=== PATIENT | female | born 1950 | race African-American/Black ===

== ENCOUNTER 2020-03-21 19:11 | Inpatient (IN) | payer MEDICARE, BC ==
[~2020-03-21] VITALS: Ht 160 cm; Wt 134.7 kg
[2020-03-21 20:30] VITALS: BP 160/55
[2020-03-21 20:30] LABS: BASOPHILS 0.3 % (0-2); EOSINOPHILS 3.4 % (0-7); HEMATOCRIT 25.6 % (36.0-48.0); HEMOGLOBIN 7.9 g/dL (12-16); IMMATURE GRANULOCYTES 0.4 % (0-5); LYMPHOCYTES 15.2 % (15-50); MCH 29.5 pg (26.0-34.0); MCHC 30.9 g/dL (31.0-37.0); MCV 95.5 fL (80.0-100.0); MEAN PLATELET VOLUME 10.9 fL (7.4-10.4); MONOCYTES 7.6 % (2-11); NEUTROPHILS 73.1 % (40-80); PLATELET COUNT 240 10x3/uL (130-400); RBC 2.68 10x6/uL (4.00-5.40); RDW 17.6 % (11.5-14.5); WBC 11.2 10x3/uL (4.8-10.8)
[2020-03-21 21:09] LABS: ANION GAP 12.7 mmol/L (8-16); CARBON DIOXIDE 24.3 mmol/L (21.0-32.0); CREATININE - SERUM 1.4 mg/dL (0.6-1.3)
[2020-03-21 21:14] LABS: BILIRUBIN - TOTAL 0.21 mg/dL (0.2-1.3); PROTEIN - SERUM 5.6 g/dL (6.4-8.2)
[2020-03-21 21:49] VITALS: BP 156/58
[2020-03-21 22:40] VITALS: BP 129/52; BMI 52.7
[2020-03-21 23:00] VITALS: BP 167/39
--- NOTE | 2020-03-21 23:03 | NUR ---
REC'D PT FROM ER, PT ASSISTED INTO CV ICU BED, PT AWAKE AND ALERT, TOTH STAT LOCKED IN PLACE DRAINING YELLOW URINE, TOTH WAS PLACED AT PREVIOUS HOSPITAL PRIOR TO TRANSFER TO [facility] IN [place], [facility]. NS AND PROTONIX DRIP INFUSING. MONITORS ON AND WORKING, VSS, CALL LIGHT WITHIN REACH, WILL CONTINUE TO OBSERVE. SEE FLOW SHEET FOR FURTHER DETAILS. DR ATKINSON AWARE OF CONSULT PER REPORT FROM ER STAFF.
[2020-03-22] VITALS (23 sets, daily range): BP systolic 124–178; BP diastolic 33–71; Ht 160 cm; Wt 134.7 kg
--- NOTE | 2020-03-22 01:00 | NUR ---
PT LYING IN BED RESTING, MONITORS ON AND WORKING, VSS, CALL LIGHT WITHIN REACH, WILL CONTINUE TO OBSERVE.
[2020-03-22 01:22] LABS: HEMATOCRIT 22.7 % (36.0-48.0)
[2020-03-22 01:30] LABS: APTT 26.4 SECONDS (22.8-39.4); INR 1.21 (0.85-1.17); PROTIME 15.2 SECONDS (11.6-15.0)
[2020-03-22 01:47] LABS: HEMOGLOBIN 7.1 g/dL (12-16)
--- NOTE | 2020-03-22 03:00 | NUR ---
PT LYING IN BED RESTING, MONITORS ON AND WORKING, VSS, CALL LIGHT WITHIN REACH, WILL CONTINUE TO OBSERVE.
[2020-03-22 05:30] LABS: BASOPHILS 0.4 % (0-2); EOSINOPHILS 6.2 % (0-7); HEMATOCRIT 21.9 % (36.0-48.0); IMMATURE GRANULOCYTES 0.4 % (0-5); LYMPHOCYTES 20.8 % (15-50); MCH 29.6 pg (26.0-34.0); MCHC 31.1 g/dL (31.0-37.0); MCV 95.2 fL (80.0-100.0); MEAN PLATELET VOLUME 10.4 fL (7.4-10.4); MONOCYTES 8.9 % (2-11); NEUTROPHILS 63.3 % (40-80); PLATELET COUNT 215 10x3/uL (130-400); RDW 18.1 % (11.5-14.5)
[2020-03-22 06:18] LABS: ALBUMIN 2.7 g/dL (3.4-5.0); ANION GAP 9.7 mmol/L (8-16); BILIRUBIN - TOTAL 0.13 mg/dL (0.2-1.3); CALCIUM 9.1 mg/dL (8.5-10.1); CARBON DIOXIDE 27.2 mmol/L (21.0-32.0); CREATININE - SERUM 1.4 mg/dL (0.6-1.3); MAGNESIUM - SERUM 2.2 mg/dL (1.8-2.4); POTASSIUM - SERUM 4.9 mmol/L (3.5-5.1); PROTEIN - SERUM 5.2 g/dL (6.4-8.2)
[2020-03-22 06:31] LABS: WBC 6.9 10x3/uL (4.8-10.8)
[2020-03-22 06:38] LABS: HEMOGLOBIN 6.8 g/dL (12-16)
--- NOTE | 2020-03-22 06:45 | NUR ---
PAGED DR ATKINSON CONCERNING PTS H&H, REC'D ORDERS FOR TWO UNITS OF PRBCS, ORDER IS IN AND BLOOD BANK IS AWARE. DISCUSSED WITH ONCOMING RN WHO WILL BE CARING FOR PT TODAY.
--- NOTE | 2020-03-22 09:43 | NUR ---
0700 BEDSIDE REPORT COMPLETE BLOOD CONSENT AND EGD CONSENTS SIGNED
--- NOTE | 2020-03-22 09:44 | NUR ---
0945 CALLED BLOOD BANK AND BLOOD NOT READY PT REMAINS NPO FOR EGD PER DR ATKINSON
--- NOTE | 2020-03-22 09:44 | NUR ---
0900 PREOP CALLED MEDS GIVEN CALLED BLOOD BANK AND BLOOD NOT READY
--- NOTE | 2020-03-22 09:53 | NUR ---
0950 EKG COMPLETE AND PLACED ON CHART
--- NOTE | 2020-03-22 11:02 | NUR ---
1040 STARTED FIRST UNIT PRBC TO LEFT HAND
[2020-03-22 11:27] LABS: HEMATOCRIT 23.3 % (36.0-48.0)
[2020-03-22 11:34] LABS: HEMOGLOBIN 7.1 g/dL (12-16)
--- NOTE | 2020-03-22 13:45 | NUR ---
1200 AUTOMATIC B/P CUFF HURTING PATIENTS ARM TO WHERE SHE PULLS IT OFF RECONCILED PAIN BY TAKING BP ALLYSON
--- NOTE | 2020-03-22 13:46 | NUR ---
1315 STARTED 2ND UNIT PRBC
[2020-03-22 13:47] LABS: % SATURATION 16 % (15-55); IRON 54 ug/dl (35-150); TOTAL IRON BIND CAPACITY 323 ug/dl (260-445); UNSAT IRON BIND CAPACITY 269 ug/dl (150-375)
--- NOTE | 2020-03-22 13:47 | NUR ---
0341 COMPLETE CHG BATH COMPLETE
[2020-03-22 14:07] LABS: THYROID STIMULATING HORMONE 0.74 uIU/mL (0.36-3.74)
--- NOTE | 2020-03-22 15:34 | NUR ---
[address] DECKER OF CONSULT REQUESTED BY DR VANEGAS REGARDING POSSIBLE RENAL MASS
--- NOTE | 2020-03-22 15:35 | NUR ---
1513 2ND UNIT PRBC COMPLETE TOLERATED INFUSIONS WELL NO SUSPECTION OF ADVERSE REACTION CONTINUING BP WITH MANUAL CUFF
[2020-03-22 18:34] LABS: HEMATOCRIT 28.3 % (36.0-48.0); HEMOGLOBIN 8.8 g/dL (12-16)
--- NOTE | 2020-03-22 19:00 | NUR ---
SHIFT ASSESSMENT COMPLETED, PT CARE ASSUMED, MONITORS ON AND WORKING, VSS, CALL LIGHT WITHIN REACH, SEE FLOW SHEET FOR FURTHER DETAILS. WILL CONTINUE TO OBSERVE.
--- NOTE | 2020-03-22 21:00 | NUR ---
PT TURNED AND REPOSITIONED FOR COMFORT, PT AWAKE AND ALERT NO SIGNS/SYMPTOMS OF PAIN OR DISCOMFORT. PT ON CELL PHONE WITH SON AT THIS TIME.
--- NOTE | 2020-03-22 23:00 | NUR ---
PT LYING IN BED RESTING, MONITORS ON AND WORKING, VSS. CALL LIGHT WITHIN REACH, SEE FLOW SHEET FOR FURTHER DETAILS. WILL CONTINUE TO OBSERVE.
[2020-03-23] VITALS (13 sets, daily range): BP systolic 134–178; BP diastolic 32–65
--- NOTE | 2020-03-23 01:00 | NUR ---
PT RESTING IN BED. MONITORS ON AND WORKING, VSS. CALL LIGHT WITHIN REACH, WILL CONTINUE TO OBSERVE.
--- NOTE | 2020-03-23 03:00 | NUR ---
TRANSFUSING PRBCS PER MD, NO CHANGES AT THIS TIME. CALL LIGHT WITHIN REACH, SEE FLOW SHEET FOR FURTHER DETAILS. WILL CONTINUE TO OBSERVE.
--- NOTE | 2020-03-23 05:00 | NUR ---
PT LYING IN BED RESTING, MONITORS ON AND WORKING, VSS, CALL LIGHT WITHIN REACH, SECOND UNIT OF PRBCS TRANSFUSING. WILL CONTINUE TO OBSERVE.
[2020-03-23 06:26] LABS: BASOPHILS 0.3 % (0-2); EOSINOPHILS 12.1 % (0-7); HEMATOCRIT 30.4 % (36.0-48.0); HEMOGLOBIN 9.3 g/dL (12-16); IMMATURE GRANULOCYTES 0.3 % (0-5); LYMPHOCYTES 17.2 % (15-50); MCH 27.8 pg (26.0-34.0); MCHC 30.6 g/dL (31.0-37.0); MEAN PLATELET VOLUME 10.7 fL (7.4-10.4); MONOCYTES 7.6 % (2-11); NEUTROPHILS 62.5 % (40-80); PLATELET COUNT 198 10x3/uL (130-400); RDW 19.1 % (11.5-14.5); WBC 7.3 10x3/uL (4.8-10.8)
[2020-03-23 06:32] LABS: ALBUMIN 2.8 g/dL (3.4-5.0); BILIRUBIN - TOTAL 0.25 mg/dL (0.2-1.3); CALCIUM 8.1 mg/dL (8.5-10.1); CARBON DIOXIDE 27.3 mmol/L (21.0-32.0); MAGNESIUM - SERUM 2.1 mg/dL (1.8-2.4); POTASSIUM - SERUM 4.3 mmol/L (3.5-5.1); PROTEIN - SERUM 5.4 g/dL (6.4-8.2)
[2020-03-23 07:04] LABS: RBC 3.34 10x6/uL (4.00-5.40)
--- NOTE | 2020-03-23 12:24 | NUR ---
Nutrition Follow-up: S/p EGD showing Eckert's esophagus (biopsied) and moderate sized sliding hiatal hernia. Diet: Clear Liquid Wt: 297# (03/22) Labs noted: Glu 219, Ca 8.1, Alb 2.8 Meds noted: Protonix, Humalog, NS @ 100, electrolyte protocol -Rec ADAT as medically feasible. If unable to advance past clears within 24-48 hrs, rec consider nutrition support; RD available to assist as needed. -Monitor wt. -RD following.
[2020-03-23 13:28] LABS: HEMATOCRIT 33.5 % (36.0-48.0); HEMOGLOBIN 10.7 g/dL (12-16)
--- NOTE | 2020-03-23 19:00 | NUR ---
SHIFT ASSESSMENT COMPLETED. PT CARE ASSUMED, MONITORS ON AND WORKING, VSS, PT AWAKE AND ALERT, NO SIGNS/SYMPTOMS OF PAIN OR DISCOMFORT, SEE FLOW SHEET FOR FURTHER DETAILS. WILL CONTINUE TO OBSERVE/
--- NOTE | 2020-03-23 21:00 | NUR ---
PT UP TO CHAIR AT BEDSIDE, PT TOLERATED WELL. MONITORS ON AND WORKING, H&H REMAINS STABLE, PT DENIES ANY COMPLAINT OF PAIN OR DISCOMFORT AT THIS TIME CALL LIGHT WITHIN REACH, WILL CONTINUE TO OBSERVE.
--- NOTE | 2020-03-23 23:00 | NUR ---
PT ASSISTED BACK INTO BED, LINEN CHANGE DONE AT THIS TIME. MONITORS ON AND WORKING, VSS CALL LIGHT WITHIN REACH, WILL CONTINUE TO OBSERVE.
[2020-03-24] VITALS (14 sets, daily range): BP systolic 121–193; BP diastolic 45–77
[2020-03-24 00:09] LABS: HEMOGLOBIN 10.9 g/dL (12-16)
--- NOTE | 2020-03-24 01:00 | NUR ---
PT RESTING QUITELY IN BED, CALL LIGHT WITHIN REACH, WILL CONTINUE TO OBSERVE.
--- NOTE | 2020-03-24 03:00 | NUR ---
PT LYING IN BED RESTING, MONITORS ON AND WORKING, FRESH ICE WATER ON BEDSIDE TABLE, CALL LIGHT WITHIN REACH, WILL CONTINUE TO OBSERVE.
--- NOTE | 2020-03-24 05:00 | NUR ---
NO CHANGES, CALL LIGHT WITHIN REACH, WILL CONTINUE TO OBSERVE.
[2020-03-24 06:36] LABS: BASOPHILS 0.2 % (0-2); EOSINOPHILS 7.2 % (0-7); HEMATOCRIT 34.6 % (36.0-48.0); IMMATURE GRANULOCYTES 0.2 % (0-5); LYMPHOCYTES 10.8 % (15-50); MCH 28.7 pg (26.0-34.0); MCHC 31.8 g/dL (31.0-37.0); MCV 90.3 fL (80.0-100.0); MEAN PLATELET VOLUME 10.4 fL (7.4-10.4); MONOCYTES 5.8 % (2-11); NEUTROPHILS 75.8 % (40-80); PLATELET COUNT 204 10x3/uL (130-400); RBC 3.83 10x6/uL (4.00-5.40); RDW 17.9 % (11.5-14.5)
[2020-03-24 06:37] LABS: WBC 9.8 10x3/uL (4.8-10.8)
[2020-03-24 06:51] LABS: ANION GAP 10.9 mmol/L (8-16); BILIRUBIN - TOTAL 0.4 mg/dL (0.2-1.3); CALCIUM 8.3 mg/dL (8.5-10.1); CARBON DIOXIDE 23.9 mmol/L (21.0-32.0); CREATININE - SERUM 0.9 mg/dL (0.6-1.3); PHOSPHOROUS 2.1 mg/dL (2.5-4.9); POTASSIUM - SERUM 3.8 mmol/L (3.5-5.1); PROTEIN - SERUM 5.7 g/dL (6.4-8.2)
--- NOTE | 2020-03-24 08:34 | NUR ---
0700 PT RECIEVED ALERT AN DORIENTED VSS DENIES PAIN AND ALL NEEDS SEE SHIFT ASSESSMENT FOR DETAILS 0830 ASSISTED UP TO CHAIR FOR BREAKFAST, ATE 75%
--- NOTE | 2020-03-24 09:29 | NUR ---
PAGED AND SPOKE WITH DR CHOPRA ABOUT CONTINUED HYPERTENSION AND THAT PT STATES SHE TAKES NO BLOOD PRESSURE MEDICATION AT HOME, [facility] ORDER RECIEVED. AFTER GIVING NORVASC PT STATES SHE TAKES TOPROL AND THAT SHE HAS A LIST OF MEDICATIONS IN HER BAG, WILL ENTER INTO MED REC AT THIS TIME
[2020-03-24] MEDS ORDERED: HUMALOG MIX 75/10 ML SQ (09:32)
[2020-03-24] MEDS ORDERED: K-TAB10 MEQ PO (09:33)
[2020-03-24] MEDS ORDERED: GEMFIBROZIL600 MG PO (09:33)
[2020-03-24] MEDS ORDERED: BAYER CHEWABLE81 MG PO (09:34)
[2020-03-24] MEDS ORDERED: GLUCOPHAGE500 MG PO (09:34)
[2020-03-24] MEDS ORDERED: TOPROL XL50 MG PO (09:34)
[2020-03-24] MEDS ORDERED: LASIX40 MG PO (09:35)
[2020-03-24] MEDS ORDERED: ISOSORBIDE MONO30 M1 PO (09:35)
[2020-03-24] MEDS ORDERED: OMEPRAZOLE20 M1 PO (09:36)
[2020-03-24] MEDS ORDERED: ZOCOR40 MG PO (09:36)
[2020-03-24] MEDS ORDERED: NEURONTIN600 MG PO (09:37)
[2020-03-24] MEDS ORDERED: TRAZODONE HCL150 MG PO (09:37)
[2020-03-24] MEDS ORDERED: VOLTAREN75 MG PO (09:38)
--- NOTE | 2020-03-24 12:13 | NUR ---
SPOKE WITH DR CHOPRA ABOUT CONTINUED HTN, ORDERS FOR HYDRALAZINE RECIEVED
--- NOTE | 2020-03-24 13:36 | NUR ---
REPORT GIVEN TO PATRICIA ORELLANA
--- NOTE | 2020-03-24 14:07 | NUR ---
REPORTS HEADACHE 06/25. TYLENOL GIVEN PER ORDERS. PT STATES THAT SHE IS SENSITIVE TO LIGHTS. REQUEST TO KEEP CURTAIN AND DOOR CLOSED MUCH POSSIBLE TO REDUCE LIGHT IN HER ROOM.
--- NOTE | 2020-03-24 18:43 | NUR ---
TRANSFERRED TO ROOM 2218 VIA WHEELCHAIR. PERSONAL BELONGINGS SENT WITH PT INCLUDING SHOES, PHONE, BRIDGE CLUB MANAGER, GLASSES, GREEN SUITCASE, WALKER WITH BLACK POUCH. RECEIVING NURSE NOTIFIED OF PT ARRIVAL. CHART HANDED TO MARIANN ORELLANA.
--- NOTE | 2020-03-24 21:00 | NUR ---
PT SITTING UP IN BED WITHOUT DISTRESS, AOX4. GAVE HS MEDS WITHOUT DIFFICULTY. ASSISTED TO AND FROM BATHROOM WITH WALKER AND SBA. DENIES OTHER NEEDS. WILL CTM
--- NOTE | 2020-03-24 23:45 | NUR ---
PT UP TO BATHROOM WITH WALKER AND SBA. PT FELT LIKE SHE HAD TO HAVE BM. ONCE UP AND WALKING THIS NURSE NOTICED MAROON SMEAR ACROSS LINENS. PT DID HAVE SMALL LOOSE BM WITH MAROON COLORING. CHANGED LINENS AND ASSISTED BACK TO BED
[2020-03-25] VITALS: BP 175/64
[2020-03-25 04:00] VITALS: BP 137/71
[2020-03-25 06:28] LABS: BASOPHILS 0.2 % (0-2); EOSINOPHILS 5.3 % (0-7); HEMATOCRIT 33.5 % (36.0-48.0); HEMOGLOBIN 10.8 g/dL (12-16); IMMATURE GRANULOCYTES 0.2 % (0-5); LYMPHOCYTES 15.7 % (15-50); MCH 29.3 pg (26.0-34.0); MCHC 32.2 g/dL (31.0-37.0); MCV 90.8 fL (80.0-100.0); MEAN PLATELET VOLUME 10.9 fL (7.4-10.4); MONOCYTES 8.4 % (2-11); NEUTROPHILS 70.2 % (40-80); PLATELET COUNT 223 10x3/uL (130-400); RBC 3.69 10x6/uL (4.00-5.40); RDW 17.7 % (11.5-14.5); WBC 8.1 10x3/uL (4.8-10.8)
[2020-03-25 07:02] LABS: ALBUMIN 2.8 g/dL (3.4-5.0); ANION GAP 14.1 mmol/L (8-16); BILIRUBIN - TOTAL 0.41 mg/dL (0.2-1.3); CALCIUM 8.8 mg/dL (8.5-10.1); CARBON DIOXIDE 23.4 mmol/L (21.0-32.0); CREATININE - SERUM 0.9 mg/dL (0.6-1.3); POTASSIUM - SERUM 3.5 mmol/L (3.5-5.1); PROTEIN - SERUM 5.9 g/dL (6.4-8.2)
[2020-03-25 07:03] LABS: PHOSPHOROUS 2.7 mg/dL (2.5-4.9)
[2020-03-25 09:51] VITALS: BP 166/59
--- NOTE | 2020-03-25 11:53 | NUR ---
gideon ruvalcaba'ed. apprx 15 ml removed from balloon. patient had bm. diarrhea dk chestnut in color. cl in reach. assisted back to bed. will get stool sample next time pt has bm. supplies in room. tm
[2020-03-25 14:57] VITALS: BP 165/66
[2020-03-25 17:40] VITALS: BP 95/58
[2020-03-25 20:00] VITALS: BP 169/67
--- NOTE | 2020-03-25 20:00 | NUR ---
PT SITTING UP IN BED WITHOUT DISTRESS, AOX4. IV LEFT HAND INFUSING NS @ KVO. PT UP TO BATHROOM WITH WALKER TO VOID AND BACK TO BED. PROVIDED DIET LEMON COUSHATTA SODA. DENIES OTHER NEEDS. CL IN REACH, WILL CTM
[2020-03-26 04:00] VITALS: BP 168/67
[2020-03-26 05:34] LABS: HEMATOCRIT 32.8 % (36.0-48.0); HEMOGLOBIN 10.8 g/dL (12-16); LYMPHOCYTES 19.2 % (15-50); MCH 29.8 pg (26.0-34.0); MCHC 32.9 g/dL (31.0-37.0); MCV 90.4 fL (80.0-100.0); MEAN PLATELET VOLUME 10.8 fL (7.4-10.4); NEUTROPHILS 68.1 % (40-80); PLATELET COUNT 217 10x3/uL (130-400); RBC 3.63 10x6/uL (4.00-5.40); RDW 16.5 % (11.5-14.5); WBC 7.4 10x3/uL (4.8-10.8)
[2020-03-26 05:38] LABS: ALBUMIN 2.7 g/dL (3.4-5.0); ANION GAP 13.3 mmol/L (8-16); BILIRUBIN - TOTAL 0.34 mg/dL (0.2-1.3); CALCIUM 8.8 mg/dL (8.5-10.1); CARBON DIOXIDE 23.3 mmol/L (21.0-32.0); CREATININE - SERUM 0.9 mg/dL (0.6-1.3); PHOSPHOROUS 2.7 mg/dL (2.5-4.9); POTASSIUM - SERUM 3.6 mmol/L (3.5-5.1); PROTEIN - SERUM 5.8 g/dL (6.4-8.2)
[2020-03-26 08:51] VITALS: BP 197/79
--- NOTE | 2020-03-26 10:00 | NUR ---
RESTING IN BED, NO DISTRESS NOTED, MEDICATED FOR C/O HEADACHE, CONT TO MONITOR PAIN AND SUGARS
[2020-03-26] MEDS ORDERED: NORVASC5 MG PO (13:38)
[2020-03-26] MEDS ORDERED: HUMALOG MIX 75/10 ML SC (14:00)
[2020-03-26 14:02] VITALS: BP 149/64
--- NOTE | 2020-03-26 14:37 | NUR ---
DC IV, TIP INTACT, TAVIA WELL
--- NOTE | 2020-03-26 15:27 | NUR ---
reviewed dc papers with pt, voiced no concerns, taken to private vehicle per w/c
--- NOTE | 2020-03-27 14:59 | MORECARE ---
CASE MANAGEMENT DISCHARGE SUMMARY PATIENT: YOEL LI UNIT: [id number] ADM DATE: 03/21/20 AGE: 69 : 49 SEX: F ROOM/BED: D.2218 AUTHOR: JOSE A ROA PHYSICIAN: REFERRING PHYSICIAN: ANTONIO CHOPRA MD DATE OF SERVICE: 03/27/20 Discharge Plan Patient Name: YOEL LI [facility] [facility] 1950 Planned Disposition: Home Anticipated Discharge Date: 03/26/20 Discharge Date: 03/26/2020 Expected LOS: 5 Initial Reviewer: [email or web address] Initial Review Date: 03/21/2020 Generated: 03/27/20 3:59 pm Patient Name: YOEL LI Page [id number] at 3096 All edits/amendments must be made on the electronic document DICTATION DATE: 03/27/209 DRIFTMAN: SOILA 03/27/20 1459 RPT#: [id number] DC DATE:03/26/20 STATUS: DIS IN [facility] [address] [place] [address] END OF REPORT
--- NOTE | 2020-03-27 15:06 | MORECARE ---
CASE MANAGEMENT DISCHARGE SUMMARY PATIENT: YOEL LI UNIT: [id number] ADM DATE: 03/21/20 AGE: 69 : 48 SEX: F ROOM/BED: D.2218 AUTHOR: JOSE A ROA PHYSICIAN: REFERRING PHYSICIAN: ANTONIO CHOPRA MD DATE OF SERVICE: 03/27/20 Discharge Plan Patient Name: YOEL LI Facility: [facility]:[place] : 1950 Planned Disposition: Home Anticipated Discharge Date: 03/26/20 Discharge Date: 03/26/2020 Expected LOS: 5 Initial Reviewer: [email or web address] Initial Review Date: 03/21/2020 Generated: 03/27/20 4:06 pm Comments DCP- Discharge Planning Updated by [email or web address]: Thelma Horn on 03/27/20 2:[address] LATE ENTRY 03/26/20 Patient Name: YOEL LI Admission Status: ER Accout number: [id number] Admission Date: 03-21-2020 : 1950 Admission Diagnosis:GASTROINTESTINAL HEMORRHAGE, UNSPECIFIED Attending: ANTONIO VANEGAS Current LOS: 5 Anticipated DC Date: 03-26-2020 Planned Disposition: Home Primary Insurance: MEDICARE A & B Discharge Planning Comments: CM met with patient to complete initial dc planning assessment. CM educated patient on the CM role and verbal consent given by patient to complete assessment. Patient lives at home with family. Patient is independent. At discharge patient plans to return home and feels this is a safe discharge. CM discussed availability of home health, rehab services, and medical equipment. Patient will have family to transport home. Patient denied known discharge needs at this time. Patient did question a special diet. CM relayed this to nursing. Patient also requested that her records be sent to her emergency services professional in [place]. CM completed a release of information form and patient signed. CM faxed request to Medical records and copy given to patient and placed on chart. D/C IMM signed 03/26/20 @ [id number]. CM will continue to follow and will assist as needed with dc plans/needs. Lion Trainer: Thelma Horn DCPIA - Discharge Planning Initial Assessment Updated by [email or web address]: Thelma Horn on 03/27/20 3:00 pm * Is the patient Alert and Oriented? Yes * How many steps to enter\exit or inside your home? 5 & [address] * PCP [facility] - [facility] - [phone] * Pharmacy [facility] * Preadmission Environment Home with Family * ADLs Independent * Equipment Walker * Other Equipment WALK IN SHOWER * List name and contact numbers for known caregivers / representatives who currently or will assist patient after discharge: Charly Li - spouse - [phone] Charly Li Jr. - son - [phone] * Verbal permission to speak to the caregivers and representatives has been obtained from the patient. Yes * Community resources currently utilized None * Additional services required to return to the preadmission environment? No * Can the patient safely return to the preadmission environment? Yes * Has this patient been hospitalized within the prior 30 days at any hospital? No Last DP export: 03/27/20 2:00 p Patient Name: YOEL LI Page [id number] at 1506 All edits/amendments must be made on the electronic document DICTATION DATE: 03/27/20 1506 BLOCK GREASER: SOILA 03/27/20 1506 RPT#: [id number] DC DATE:03/26/20 STATUS: DIS IN [facility] [address] [place] [address] END OF REPORT
== END 2020-03-26 15:25 | disposition home or self-care (01) | DRG 378 ==
LOC: D.ER 19:11 → D.CVICU 19:50 → D.ICU 03-24 09:16 → D.MS 03-24 18:45
PROVIDERS: Family Medicine; Internal Medicine Gastroenterology; Internal Medicine Hematology & Oncology; ADMIT Family Medicine Adult Medicine; ATTEND Family Medicine Adult Medicine
PROC: 0DB58ZX Excision of Esophagus, Via Natural or Artificial Opening Endoscopic, Diagnostic (ICD-10-PCS; principal; 2020-03-22 14:32)
DX: K92.2 Gastrointestinal hemorrhage, unspecified (principal); N17.9 Acute kidney failure, unspecified; D64.9 Anemia, unspecified; N28.89 Other specified disorders of kidney and ureter; E11.65 Type 2 diabetes mellitus with hyperglycemia; I10 Essential (primary) hypertension; M19.90 Unspecified osteoarthritis, unspecified site; K21.9 Gastro-esophageal reflux disease without esophagitis; K80.20 Calculus of gallbladder without cholecystitis without obstruction; E66.01 Morbid (severe) obesity due to excess calories; R60.0 Localized edema; E11.40 Type 2 diabetes mellitus with diabetic neuropathy, unspecified